=== PATIENT | female | born 1955 | race Two or more races ===

== ENCOUNTER 2017-08-28 13:19 | Outpatient (CLI) | payer OTHER | END 2017-08-28 13:41 | disposition home or self-care (01) | LOC: MAMO-SONO 13:19 | DX: N64.0 Fissure and fistula of nipple (principal); Z12.31 Encounter for screening mammogram for malignant neoplasm of breast ==

== ENCOUNTER → 2018-09-22 | Outpatient (CLI) | payer OTHER | END | disposition home or self-care (01) | LOC: MAMO-SONO 12:09 | DX: N62 Hypertrophy of breast (principal); Z12.31 Encounter for screening mammogram for malignant neoplasm of breast ==

== ENCOUNTER → 2021-03-23 15:00 | Outpatient (CLI) | payer OTHER | END | disposition home or self-care (01) | LOC: PPH VACUNA 15:00 | DX: Z23 Encounter for immunization (principal) ==

== ENCOUNTER 2022-02-19 13:31 | Outpatient (CLI) | payer OTHER | END 2022-02-19 13:42 | disposition home or self-care (01) | LOC: MAMO-SONO 13:31 | PROVIDERS: ATTEND Obstetrics & Gynecology Obstetrics | DX: N64.4 Mastodynia (principal) ==

== ENCOUNTER 2023-04-10 11:22 | Outpatient (CLI) | payer OTHER | END 2023-04-10 11:44 | disposition home or self-care (01) | LOC: MAMO-SONO 11:22 | PROVIDERS: ATTEND Obstetrics & Gynecology Obstetrics | DX: N64.4 Mastodynia (principal); Z12.31 Encounter for screening mammogram for malignant neoplasm of breast ==